=== PATIENT | male | born 2000 | race Caucasian/White ===

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

== ENCOUNTER 2018-08-22 08:19 | Emergency (ER) | payer OTHER ==
[~2018-08-22] VITALS: Ht 175.3 cm; Wt 73.9 kg
== END 2018-08-22 08:35 | disposition home or self-care (01) ==
LOC: ED 08:19
DX: S61.032A Puncture wound without foreign body of left thumb without damage to nail, initial encounter (principal); W26.8XXA Contact with other sharp object(s), not elsewhere classified, initial encounter

== ENCOUNTER 2021-01-04 09:55 | Emergency (ER) | payer OTHER ==
[~2021-01-04] VITALS: Ht 180.3 cm; Wt 81.7 kg
== END 2021-01-04 11:00 | disposition home or self-care (01) ==
LOC: ED 09:55
DX: S51.812A Laceration without foreign body of left forearm, initial encounter (principal); W22.8XXA Striking against or struck by other objects, initial encounter; Y99.0 Civilian activity done for income or pay
CPT/HCPCS: 12002; 99282-25